=== PATIENT | male | born 1980 | race African-American/Black ===

== ENCOUNTER 2018-06-23 18:10 | Emergency (ER) | payer SELFPAY ==
[~2018-06-23] VITALS: Ht 193 cm; Wt 100.0 kg
[2018-06-23] MEDS ORDERED: KETOROLAC 60MG/2ML VIAL IM ONE (20:15)
[2018-06-23 20:19] VITALS: BP 144/67
== END 2018-06-24 | disposition home or self-care (01) ==
LOC: ER 18:10
DX: K04.7 Periapical abscess without sinus (principal); F17.200 Nicotine dependence, unspecified, uncomplicated
CPT/HCPCS: 96372; 99283; J1885